=== PATIENT | female | born 1975 | race Caucasian/White ===

== ENCOUNTER 2018-06-05 15:20 | Emergency (ER) | payer MEDICAID ==
[2018-06-05] MEDS ORDERED: NS 1,000 ML IV ONE ×2 (15:38→17:40)
--- NOTE | 2018-06-05 15:44 | EDPHY ---
H & P Stated Complaint: RUQ and LUQ abd pain hx 1wk, denies n/v/d Time Seen by Provider: 06/05/18 15:29 HPI/ROS: CHIEF COMPLAINT: Abdominal pressure HISTORY OF PRESENT ILLNESS: 42-year-old female presents with a one-week history of abdominal pressure. Onset of constant upper abdominal pressure 1 week ago, gradually increasing, especially over the past 2 days. The abdominal pressure is moderate. Did not eat or drink anything today because of pain. The pain does not change with eating. No associated symptoms and no alleviating or aggravating factors. No chest pain and no shortness of breath. No prior similar symptoms. REVIEW OF SYSTEMS: complete 10 point ROS reviewed and is negative except for the noted elements in the HPI Source: Patient - Personal History LMP (Females 10-55): 15-21 Days Ago Current Tetanus/Diphtheria Vaccine: No Current Tetanus Diphtheria and Acellular Pertussis (TDAP): No - Medical/Surgical History Hx Asthma: No Hx Chronic Respiratory Disease: No Hx Diabetes: No Hx Cardiac Disease: No Hx Renal Disease: No Hx Cirrhosis: No Hx Alcoholism: No Hx HIV/AIDS: No Hx Splenectomy or Spleen Trauma: No Other PMH: tubal ligation; appendectomy 2007 - Social History Smoking Status: Current every day smoker Alcohol Use: Heavy (a pint/day) Drug Use: None Additional Social History: - Physical Exam Exam: General Appearance: Alert, pleasant Eyes: Pupils equal and round, no conjunctival pallor or injection ENT, Mouth: Mucous membranes moist Neck: Normal inspection Respiratory: Normal inspection, no tenderness, Lungs are clear to auscultation Cardiovascular: Regular rate and rhythm Gastrointestinal: Abdomen is soft, hepatomegaly, no abdominal tenderness, decreased bowel sounds Neurological: A&O, nonfocal, normal gait Skin: Warm and dry Extremities: Normal inspection Psychiatric: Mood and affect normal Constitutional: Initial Vital Signs Temperature (C) 36.8 C 06/05/18 15:22 Heart Rate 115 H 06/05/18 15:22 Respiratory Rate 18 06/05/18 15:22 Blood Pressure 153/97 H 06/05/18 15:22 O2 Sat (%) 96 06/05/18 15:22 O2 Delivery Mode Room Air Allergies/Adverse Reactions: diphenhydramine [From Benadryl] Allergy (Verified 06/05/18 15:27) Home Medications: Medication Instructions Recorded Cephalexin [Keflex (*)] 500 mg PO BID #10 cap 06/05/18 Ondansetron Odt [Zofran Odt 4 mg 4 mg PO Q4 PRN #6 tab 06/05/18 (*)] Pantoprazole Sodium [Protonix 40mg 40 mg PO DAILY #20 tab 06/05/18 (*)] Medical Decision Making - Diagnostics EKG Interpretation: EKG interpreted by me reveals sinus tachycardia, rate 117, no ST or T segment changes. Interpretation: Borderline EKG Imaging Results: Imaging Impressions Abdomen CT 06/05/18 15:38 Impression: 1. Hepatomegaly and steatosis. Query steatohepatitis. 2. Normal gallbladder. No biliary obstruction or cholelithiasis. 3. Normal bowel pattern. No obstruction. Findings discussed with Emergency Department physician, Dr. Kathie Joy on June 05, 2018 at 1728 hours. Imaging: Discussed imaging studies w/ second floor operator Radiologist ED Course/Re-evaluation: This patient presents with abdominal pressure for 1 week. Patient's exam is soft and nontender, hepatomegaly present. Stat EKG reveals no evidence of ischemia or significant dysrhythmia. Clinical scenario did not suggest acute coronary syndrome, PE or other cardiopulmonary problem. CT scan of the abdomen/ pelvis obtained and reveals a fatty liver, results discussed with the patient and her . She has a history of heavy alcohol use and this is most likely the etiology. She feels much better after morphine and Zofran IV. Heart rate 106, blood pressure normal. Clinical history consistent with dehydration. Will give a GI cocktail, a 2nd L of normal saline and then reassess. 1830: feels better, HR 91, will d/c home. f/u PCP and GI. Will place patient on Protonix. Keflex prescription given for UTI. Differential Diagnosis: Differential diagnosis includes though it is not limited to appendicitis, cholecystitis, diverticulitis, pyelonephritis, bowel perforation, small bowel obstruction. - Data Points Laboratory Results: Laboratory Results 06/05/18 15:55 06/05/18 15:55 06/05/18 06/05/18 06/05/18 17:39 17:05 16:07 WBC RBC Hgb POC Hgb 12.9 gm/dL gm/dL (12.6-16.3) Hct POC Hct 38 % % (38-47) MCV MCH MCHC RDW Plt Count MPV Neut % (Auto) Lymph % (Auto) Lake % (Auto) Eos % (Auto) Baso % (Auto) Nucleat RBC Rel Count Absolute Neuts (auto) Absolute Lymphs (auto) Absolute Monos (auto) Absolute Eos (auto) Absolute Basos (auto) Absolute Nucleated RBC Immature Gran % Immature Gran # Platelet Estimate Polychromasia Hypochromasia Microcytic Cells Tear Drop Cells Oval Macrocytes Elliptocytes D-Dimer POC Sodium 140 mEq/L mEq/L (135-145) Sodium POC Potassium 3.8 mEq/L mEq/L (3.3-5.0) Potassium POC Chloride 102 mEq/L mEq/L (97-110) Chloride Carbon Dioxide POC Total CO2 22 mEq/L mEq/L (22-31) Anion Gap POC BUN < 3 mg/dL L mg/dL (7-23) BUN Creatinine POC Creatinine 0.5 mg/dL L mg/dL (0.6-1.0) Estimated GFR Glucose POC Glucose 114 mg/dL H mg/dL (70-100) Calcium Total Bilirubin Conjugated Bilirubin Unconjugated Bilirubin AST ALT Alkaline Phosphatase Total Protein Albumin Lipase Beta HCG, Qual Urine Color LUCIANO Urine Appearance HAZY Urine pH 5.0 (5.0-7.5) Ur Specific Premium > 1.035 H (1.002-1.030) Urine Protein NEGATIVE (NEGATIVE) Urine Ketones NEGATIVE (NEGATIVE) Urine Blood NEGATIVE (NEGATIVE) Urine Nitrate POSITIVE H (NEGATIVE) Urine Bilirubin NEGATIVE (NEGATIVE) Urine Urobilinogen 2.0 EU H EU (0.2-1.0) Ur Leukocyte Esterase 2+ H (NEGATIVE) Urine RBC 5-10 /hpf H /hpf (0-3) Urine WBC 25-50 /hpf H /hpf (0-3) Ur Epithelial Cells 2+ /lpf H /lpf (NONE-1+) Urine Bacteria TRACE /hpf H /hpf (NONE SEEN) Urine Mucus 2+ /lpf H /lpf (NONE-1+) Urine Glucose NEGATIVE (NEGATIVE) Hepatitis A IgM Ab NEGATIVE (NEGATIVE) Hep Bs Antigen NEGATIVE (NEGATIVE) Hep B Core IgM Ab NEGATIVE (NEGATIVE) Hepatitis C Antibody NEGATIVE (NEGATIVE) 06/05/18 06/05/18 06/05/18 15:55 15:55 15:55 WBC RBC Hgb POC Hgb Hct POC Hct MCV MCH MCHC RDW Plt Count MPV Neut % (Auto) Lymph % (Auto) Lake % (Auto) Eos % (Auto) Baso % (Auto) Nucleat RBC Rel Count Absolute Neuts (auto) Absolute Lymphs (auto) Absolute Monos (auto) Absolute Eos (auto) Absolute Basos (auto) Absolute Nucleated RBC Immature Gran % Immature Gran # Platelet Estimate Polychromasia Hypochromasia Microcytic Cells Tear Drop Cells Oval Macrocytes Elliptocytes D-Dimer 0.41 ug/mLFEU ug/mLFEU (0.00-0.50) POC Sodium Sodium 136 mEq/L mEq/L (135-145) POC Potassium Potassium 4.3 mEq/L mEq/L (3.5-5.2) POC Chloride Chloride 102 mEq/L mEq/L (97-110) Carbon Dioxide 20 mEq/l L mEq/l (22-31) POC Total CO2 Anion Gap 14 mEq/L mEq/L (6-14) POC BUN BUN 3 mg/dL L mg/dL (7-23) Creatinine 0.5 mg/dL L mg/dL (0.6-1.0) POC Creatinine Estimated GFR > 60 Glucose 116 mg/dL H mg/dL (70-100) POC Glucose Calcium 8.9 mg/dL mg/dL (8.5-10.4) Total Bilirubin 1.0 mg/dL mg/dL (0.1-1.4) Conjugated Bilirubin 0.4 mg/dL mg/dL (0.0-0.5) Unconjugated Bilirubin 0.6 mg/dL mg/dL (0.0-1.1) AST 122 IU/L H IU/L (14-46) ALT 33 IU/L IU/L (9-52) Alkaline Phosphatase 127 IU/L H IU/L (38-126) Total Protein 8.2 g/dL g/dL (6.3-8.2) Albumin 4.0 g/dL g/dL (3.5-5.0) Lipase 44 IU/L IU/L (23-300) Beta HCG, Qual NEGATIVE Urine Color Urine Appearance Urine pH Ur Specific Premium Urine Protein Urine Ketones Urine Blood Urine Nitrate Urine Bilirubin Urine Urobilinogen Ur Leukocyte Esterase Urine RBC Urine WBC Ur Epithelial Cells Urine Bacteria Urine Mucus Urine Glucose Hepatitis A IgM Ab Hep Bs Antigen Hep B Core IgM Ab Hepatitis C Antibody 06/05/18 15:55 WBC 8.77 10^3/uL 10^3/uL (3.80-9.50) RBC 4.07 10^6/uL L 10^6/uL (4.18-5.33) Hgb 10.5 g/dL L g/dL (12.6-16.3) POC Hgb Hct 34.2 % L % (38.0-47.0) POC Hct MCV 84.0 fL fL (81.5-99.8) MCH 25.8 pg L pg (27.9-34.1) MCHC 30.7 g/dL L g/dL (32.4-36.7) RDW 22.2 % H % (11.5-15.2) Plt Count 266 10^3/uL 10^3/uL (150-400) MPV 10.1 fL fL (8.7-11.7) Neut % (Auto) 70.6 % % (39.3-74.2) Lymph % (Auto) 19.3 % % (15.0-45.0) Lake % (Auto) 7.4 % % (4.5-13.0) Eos % (Auto) 1.5 % % (0.6-7.6) Baso % (Auto) 0.6 % % (0.3-1.7) Nucleat RBC Rel Count 0.0 % % (0.0-0.2) Absolute Neuts (auto) 6.20 10^3/uL 10^3/uL (1.70-6.50) Absolute Lymphs (auto) 1.69 10^3/uL 10^3/uL (1.00-3.00) Absolute Monos (auto) 0.65 10^3/uL 10^3/uL (0.30-0.80) Absolute Eos (auto) 0.13 10^3/uL 10^3/uL (0.03-0.40) Absolute Basos (auto) 0.05 10^3/uL 10^3/uL (0.02-0.10) Absolute Nucleated RBC 0.00 10^3/uL 10^3/uL (0-0.01) Immature Gran % 0.6 % % (0.0-1.1) Immature Gran # 0.05 10^3/uL 10^3/uL (0.00-0.10) Platelet Estimate ADEQUATE (ADEQ) Polychromasia 2+ H Hypochromasia 2+ H Microcytic Cells 2+ H Tear Drop Cells 1+ H Oval Macrocytes 1+ H Elliptocytes 1+ H D-Dimer POC Sodium Sodium POC Potassium Potassium POC Chloride Chloride Carbon Dioxide POC Total CO2 Anion Gap POC BUN BUN Creatinine POC Creatinine Estimated GFR Glucose POC Glucose Calcium Total Bilirubin Conjugated Bilirubin Unconjugated Bilirubin AST ALT Alkaline Phosphatase Total Protein Albumin Lipase Beta HCG, Qual Urine Color Urine Appearance Urine pH Ur Specific Premium Urine Protein Urine Ketones Urine Blood Urine Nitrate Urine Bilirubin Urine Urobilinogen Ur Leukocyte Esterase Urine RBC Urine WBC Ur Epithelial Cells Urine Bacteria Urine Mucus Urine Glucose Hepatitis A IgM Ab Hep Bs Antigen Hep B Core IgM Ab Hepatitis C Antibody Medications Given: Discontinued Medications Al Hydroxide/Mg Hydroxide (Maalox Susp) 30 ml PO ONCE ONE Stop: 06/05/18 17:41 Last Admin: 06/05/18 17:59 Dose: 30 ml Hyoscyamine Sulfate (Levsin, Hyomax-Sl) 0.25 mg PO ONCE ONE Stop: 06/05/18 17:41 Last Admin: 06/05/18 17:58 Dose: 0.25 mg Sodium Chloride (Ns) 1,000 mls @ 0 mls/hr IV EDNOW ONE; Wide Open PRN Reason: Protocol Stop: 06/05/18 15:39 Last Admin: 06/05/18 16:01 Dose: 1,000 mls Sodium Chloride (Ns) 1,000 mls @ 0 mls/hr IV EDNOW ONE; Wide Open PRN Reason: Protocol Stop: 06/05/18 17:41 Last Admin: 06/05/18 18:00 Dose: 1,000 mls Lidocaine (Lidocaine 2% Viscous) 15 ml PO ONCE ONE Stop: 06/05/18 17:41 Last Admin: 06/05/18 17:59 Dose: 15 ml Morphine Sulfate (Morphine) 4 mg IVP EDNOW ONE Stop: 06/05/18 16:35 Last Admin: 06/05/18 17:11 Dose: Not Given Ondansetron HCl (Zofran) 4 mg IVP EDNOW ONE Stop: 06/05/18 16:35 Last Admin: 06/05/18 17:11 Dose: Not Given Point of Care Test Results: Chemistry 06/05/18 16:07 POC Sodium 140 mEq/L mEq/L (135-145) POC Potassium 3.8 mEq/L mEq/L (3.3-5.0) POC Chloride 102 mEq/L mEq/L (97-110) POC Total CO2 22 mEq/L mEq/L (22-31) POC BUN < 3 mg/dL L mg/dL (7-23) POC Creatinine 0.5 mg/dL L mg/dL (0.6-1.0) POC Glucose 114 mg/dL H mg/dL (70-100) ISTAT H&H 06/05/18 16:07 POC Hgb 12.9 gm/dL gm/dL (12.6-16.3) POC Hct 38 % % (38-47) Departure - Departure Disposition: Home, Routine, Self-Care Clinical Impression: Urinary tract infection Qualifiers: Urinary tract infection type: acute cystitis Hematuria presence: without hematuria Qualified Code(s): N30.00 - Acute cystitis without hematuria Acute gastritis Qualifiers: Gastritis type: alcoholic Gastritis bleeding: without bleeding Qualified Code(s ): K29.20 - Alcoholic gastritis without bleeding Condition: Good Instructions: Gastritis (ED), Urinary Tract Infection in Women (ED) Additional Instructions: Drink plenty of fluids. Avoid fatty and spicy foods. Take Mylanta 30 min prior to meals and at bedtime. Return for worsening symptoms or any concerns. Referrals: Sarah Da Silva MD [Medical Doctor] - As per Instructions (Call to make an appointment.) Oswaldo Mccormick MD [Medical Doctor] - As per Instructions Prescriptions: Cephalexin [Keflex (*)] 500 mg PO BID #10 cap Ondansetron Odt [Zofran Odt 4 mg (*)] 4 mg PO Q4 PRN #6 tab PRN Reason: Nausea Pantoprazole Sodium [Protonix 40mg (*)] 40 mg PO DAILY #20 tab
[2018-06-05 16:09] LABS: PLATELET COUNT 266 10^3/uL (150-400)
[2018-06-05] MEDS ORDERED: IOPAMIDOL (ISOVUE-300) 100 ML BTL ONE (16:19)
[2018-06-05] MEDS ORDERED: ONDANSETRON 4 MG/2 ML VIAL IVP ONE (16:34)
[2018-06-05] MEDS ORDERED: HYOSCYAMINE SULFATE 0.125 MG TAB PO ONE (17:40)
[2018-06-05] MEDS ORDERED: LIDOCAINE 2% VISCOUS 15 ML UDCUP PO ONE (17:40)
[2018-06-05] MEDS ORDERED: MAG HYDROX/AL HYDROX/SIMETH 30 ML UDCUP PO ONE (17:40)
[2018-06-05 18:03] VITALS: BP 160/114
[2018-06-05 21:24] LABS: HEPATITIS B SURFACE ANTIGEN NEGATIVE (NEGATIVE)
[2018-06-05 21:27] LABS: HEPATITIS A ANTIBODY IGM (BCH) NEGATIVE (NEGATIVE); HEPATITIS B CORE AB IGM NEGATIVE (NEGATIVE)
[2018-06-05 21:50] LABS: HEPATITIS C ANTIBODY TOTAL NEGATIVE (NEGATIVE)
--- NOTE | 2018-06-06 17:41 | CPEKG ---
Test Reason : OPEN Blood Pressure : / mmHG Vent. Rate : 117 BPM Atrial Rate : 117 BPM P-R Int : 137 ms QRS Dur : 095 ms QT Int : 356 ms P-R-T Axes : 043 008 055 degrees QTc Int : 497 ms Sinus tachycardia Borderline prolonged QT interval Confirmed by Kathie Ashley ([id number]) on 06/06/2018 5:41:37 PM Referred By: KATHIE ASHLEY Confirmed By:Kathie Ashley
== END 2018-06-05 18:44 | disposition home or self-care (01) ==
DX: N30.00 Acute cystitis without hematuria (principal); K29.20 Alcoholic gastritis without bleeding; R16.0 Hepatomegaly, not elsewhere classified; K76.0 Fatty (change of) liver, not elsewhere classified; E86.9 Volume depletion, unspecified
CPT/HCPCS: 82435-PO; 82565-PO; 82947-PO; 84132-PO; 84295-PO; 84520-PO; 85014-ER; G0472; Q9967

== ENCOUNTER 2018-06-07 23:26 | Emergency (ER) | payer MEDICAID ==
[2018-06-08] MEDS ORDERED: KETOROLAC 15 MG/1 ML SDV IVP ONE (00:18)
[2018-06-08] MEDS ORDERED: HYDROmorphONE/DILAUDID 2 MG/ML INJ IVP ONE (00:18)
[2018-06-08] MEDS ORDERED: FAMOTIDINE 20 MG/NACL 50 ML IV ONE (00:18)
[2018-06-08] MEDS ORDERED: NS 1,000 ML IV ONE (00:23)
== END 2018-06-08 02:54 | disposition home or self-care (01) ==
DX: R10.10 Upper abdominal pain, unspecified (principal); K76.0 Fatty (change of) liver, not elsewhere classified; E86.9 Volume depletion, unspecified; F17.200 Nicotine dependence, unspecified, uncomplicated; Z87.440 Personal history of urinary (tract) infections